=== PATIENT | male | born 1955 | race Caucasian/White ===

== ENCOUNTER 2016-09-10 11:51 | Outpatient (CLI) | payer OTHER, BC ==
[~2016-09-10 11:51] MED LIST: ASPI81TA2 PO; BACL10TA PO; LISI20TA PO; NEU300 PO; NOR10 PO; SIMV40TA2 PO; SITA1TAB10 PO; TYLENOL PO
== END 2016-09-10 21:07 | disposition home or self-care (01) ==
LOC: SRD 11:51
PROVIDERS: ATTEND Internal Medicine
DX: M19.031 Primary osteoarthritis, right wrist (principal)

== ENCOUNTER 2017-09-26 14:53 | Outpatient (CLI) | payer OTHER, BC | END 2017-09-26 21:16 | disposition home or self-care (01) | LOC: SRD 14:53 | PROVIDERS: ATTEND Internal Medicine | DX: R91.1 Solitary pulmonary nodule (principal) | CPT/HCPCS: 71048 ==

== ENCOUNTER 2018-06-05 10:44 | Emergency (ER) | payer OTHER, BC ==
[~2018-06-05] VITALS: Ht 180.3 cm; Wt 158.8 kg
[~2018-06-05 10:44] MED LIST changes: +ASPI-1155 PO; -ASPI81TA2 PO
[2018-06-05 10:53] VITALS: BP_SYST 142
[2018-06-05] MEDS ORDERED: MORPHINE 4 MG/ML INJ. SYRINGE IVP ONE (12:00)
[2018-06-05 12:56] LABS: HEMATOCRIT 36.6 % (36-54); HEMOGLOBIN 12.2 g/dL (14.0-18.0); LYMPHOCYTES % (AUTO) 30.7 % (20.5-51.5); MEAN CORPUSCULAR HEMOGLOBIN 30 pg (27-31); MEAN CORPUSCULAR HGB CONC 33 % (32-36); MEAN CORPUSCULAR VOLUME 89 fL (79.0-98.0); MONOCYTES % (AUTO) 7.9 % (1.7-9.3); NEUTROPHILS % (AUTO) 57.3 % (40.0-70.0); PLATELET COUNT (AUTO) 175 K/uL (130-430); RED BLOOD CELL COUNT(AUTO) 4.13 MIL/uL (4.2-6.2); RED CELL DISTRIBUTION WIDTH 15.1 % (9.0-15.0); WHITE BLOOD COUNT (AUTO) 5.9 K/uL (4.8-10.8)
[2018-06-05 12:57] LABS: BASOPHILS # (AUTO) 0.1 K/uL (0.0-0.2); BASOPHILS % (AUTO) 1.2 % (0.0-2.0); EOSINOPHILS # (AUTO) 0.2 K/uL (0.0-0.4); EOSINOPHILS % (AUTO) 2.9 % (0.0-4.0); LYMPHOCYTES # (AUTO) 1.8 K/uL (1.0-5.5); MONOCYTES # (AUTO) 0.5 K/uL (0.0-1.0); NEUTROPHILS # (AUTO) 3.4 K/uL (1.8-7.7)
[2018-06-05 13:09] LABS: PROTHROMBIN TIME 10.1 SECS (9.5-12.5)
[2018-06-05 15:09] VITALS: BP_SYST 142
== END 2018-06-05 15:09 | disposition home or self-care (01) ==
LOC: SED 10:44
DX: S22.32XA Fracture of one rib, left side, initial encounter for closed fracture (principal); J44.9 Chronic obstructive pulmonary disease, unspecified; E11.9 Type 2 diabetes mellitus without complications; I10 Essential (primary) hypertension; Z98.84 Bariatric surgery status; Z79.82 Long term (current) use of aspirin; Z79.899 Other long term (current) drug therapy; W01.198A Fall on same level from slipping, tripping and stumbling with subsequent striking against other object, initial encounter; Y93.89 Activity, other specified; Y92.89 Other specified places as the place of occurrence of the external cause; Y99.8 Other external cause status
CPT/HCPCS: 36415; 71045; 71250; 74176; 85025; 85610; 96372; 99284; J2270

== ENCOUNTER 2018-06-09 11:33 | Emergency (ER) | payer OTHER, BC ==
[~2018-06-09] VITALS: Ht 180.3 cm; Wt 158.8 kg
[2018-06-09 11:33] VITALS: BP_SYST 163
--- NOTE | 2018-06-09 11:33 | NUR ---
BROUGHT IMMEDIATELY BACK TO BED #4 AND TRIAGED.REPORT GIVEN TO LIONEL
--- NOTE | 2018-06-09 11:39 | NUR ---
pt stated that he was attempting to lexx his dog during a dog fight, when he accidently tripped over a brick in his drive way and fell to the cement. Pt denies LOC. Has left rib pain 09/27.
--- NOTE | 2018-06-09 11:39 | NUR ---
Patient to ER bed 04 to gown for evaluation. Side rails up.
--- NOTE | 2018-06-09 11:40 | NUR ---
ER at bedside examining patient.
[2018-06-09] MEDS ORDERED: HYDROcodone/ACETAMIN 5-325 MG TAB (NORCO/ VICODIN) PO ONE (11:45)
--- NOTE | 2018-06-09 11:51 | NUR ---
Radiology Pt taken off unit to radiology.
[2018-06-09 13:24] VITALS: BP_SYST 114
--- NOTE | 2018-06-09 13:29 | NUR ---
Patient given written and verbal discharge instructions and verbalizes understanding. ER MD discussed with patient the results and treatment provided. Patient in stable condition. ID arm band removed. No RX given. Patient educated on pain management and to follow up with PMD. Pain Scale 3/10 tolerable for patient. Opportunity for questions provided and answered. Medication side effect fact sheet provided.
== END 2018-06-09 13:24 | disposition home or self-care (01) ==
LOC: SED 11:33
DX: S29.011A Strain of muscle and tendon of front wall of thorax, initial encounter (principal); E11.9 Type 2 diabetes mellitus without complications; J44.9 Chronic obstructive pulmonary disease, unspecified; I10 Essential (primary) hypertension; Z79.82 Long term (current) use of aspirin; Z79.899 Other long term (current) drug therapy; W01.0XXA Fall on same level from slipping, tripping and stumbling without subsequent striking against object, initial encounter; Y93.89 Activity, other specified; Y92.89 Other specified places as the place of occurrence of the external cause; Y99.8 Other external cause status
CPT/HCPCS: 71100; 99283

== ENCOUNTER 2018-07-19 16:24 | Outpatient (CLI) | payer OTHER, BC | END 2018-07-19 21:12 | disposition home or self-care (01) | LOC: SRD 16:24 | PROVIDERS: ATTEND Internal Medicine | DX: M19.042 Primary osteoarthritis, left hand (principal); M19.041 Primary osteoarthritis, right hand; M65.30 Trigger finger, unspecified finger ==

== ENCOUNTER 2018-11-28 20:08 | Emergency (ER) | payer OTHER, BC ==
[~2018-11-28] VITALS: Ht 180.3 cm; Wt 158.8 kg
[2018-11-28 20:20] VITALS: BP_SYST 137
--- NOTE | 2018-11-28 20:20 | NUR ---
Pt ambulatory to bed 7 for evaluation
--- NOTE | 2018-11-28 20:35 | NUR ---
Pt presents to ER after hitting the back of his head into a wall, after slipping while sitting on a chair. Pt states that his head is not hurting at this time, but does have neck pain that radiates into this back of his shoulder, 06/28. Pt is AAO. No KO happened. Pt has Hx of DM, HTN, and Kidney disease stage 4. Pt has a gastric bypass and retinal attachment Sx. Will continue to monitor.
--- NOTE | 2018-11-28 20:42 | NUR ---
Dr. Amado at bedside examining Pt.
[2018-11-28] MEDS ORDERED: LORazepam 2 MG/ML VIAL IM ONE (20:45)
[2018-11-28] MEDS ORDERED: KETOROLAC TROMETHAMINE 60 MG/2 ML VIAL IM ONE (20:45)
--- NOTE | 2018-11-28 20:52 | NUR ---
Pt to radiology for X-ray.
--- NOTE | 2018-11-28 21:25 | NUR ---
Patient given written and verbal discharge instructions and verbalizes understanding. ER MD discussed with patient the results and treatment provided. Patient in stable condition. ID arm band removed. Rx of Motrin given. Patient educated on pain management and to follow up with PMD. Pain Scale 0/10.Opportunity for questions provided and answered. Medication side effect fact sheet provided.
[2018-11-28 21:38] VITALS: BP_SYST 135
== END 2018-11-28 21:38 | disposition home or self-care (01) ==
LOC: SED 20:08
DX: S16.1XXA Strain of muscle, fascia and tendon at neck level, initial encounter (principal); I12.9 Hypertensive chronic kidney disease with stage 1 through stage 4 chronic kidney disease, or unspecified chronic kidney disease; E11.22 Type 2 diabetes mellitus with diabetic chronic kidney disease; N18.9 Chronic kidney disease, unspecified; Z79.82 Long term (current) use of aspirin; Z79.899 Other long term (current) drug therapy; W01.198A Fall on same level from slipping, tripping and stumbling with subsequent striking against other object, initial encounter; Y93.89 Activity, other specified; Y92.89 Other specified places as the place of occurrence of the external cause; Y99.8 Other external cause status
CPT/HCPCS: 72040; 82962; 96372; 99283; J1885; J2060

== ENCOUNTER 2018-12-31 10:42 | Emergency (ER) | payer OTHER, BC ==
[~2018-12-31] VITALS: Ht 180.3 cm; Wt 154.2 kg
--- NOTE | 2018-12-31 10:50 | NUR ---
Placed in room 3 . Placed on property assessment monitor, blood pressure machine and pulse oximeter. To gown for exam. Side rails up.
[2018-12-31 10:51] VITALS: BP_SYST 158
--- NOTE | 2018-12-31 10:55 | NUR ---
pt arrives w/ sudden onset of CP and SOB. Pt was seen at an uregent care and was instructed to come to the ER. Pt is AAOx4 not other c/o at the moment
--- NOTE | 2018-12-31 11:00 | NUR ---
ASHLEY Jang at bedside examining patient.
[2018-12-31] MEDS ORDERED: ASPIRIN 81 MG TAB.CHEW PO ONE (11:15)
[2018-12-31 11:42] LABS: BASOPHILS # (AUTO) 0.1 K/uL (0.0-0.2); BASOPHILS % (AUTO) 0.7 % (0.0-2.0); EOSINOPHILS # (AUTO) 0.2 K/uL (0.0-0.4); EOSINOPHILS % (AUTO) 2.7 % (0.0-4.0); HEMATOCRIT 36.8 % (36-54); HEMOGLOBIN 12.2 g/dL (14.0-18.0); LYMPHOCYTES # (AUTO) 1.9 K/uL (1.0-5.5); LYMPHOCYTES % (AUTO) 23.8 % (20.5-51.5); MEAN CORPUSCULAR HEMOGLOBIN 30 pg (27-31); MEAN CORPUSCULAR HGB CONC 33 % (32-36); MEAN CORPUSCULAR VOLUME 90 fL (79.0-98.0); MONOCYTES # (AUTO) 0.6 K/uL (0.0-1.0); MONOCYTES % (AUTO) 8.2 % (1.7-9.3); NEUTROPHILS % (AUTO) 64.6 % (40.0-70.0); PLATELET COUNT (AUTO) 178 K/uL (130-430); RED BLOOD CELL COUNT(AUTO) 4.09 MIL/uL (4.2-6.2); RED CELL DISTRIBUTION WIDTH 15.4 % (9.0-15.0); WHITE BLOOD COUNT (AUTO) 7.8 K/uL (4.8-10.8)
[2018-12-31 11:44] LABS: ANION GAP 7 (5-15); CALCIUM 8.9 mg/dL (8.4-11.0); CHLORIDE 105 mmol/L (98-107); CREATININE 3.31 mg/dL (0.55-1.30); GLUCOSE 225 mg/dL (70-99); SODIUM SERUM 137 mmol/L (136-145); UREA NITROGEN, BLOOD 65 mg/dL (8-21)
[2018-12-31 11:45] LABS: GFR AFRICAN AMERICAN 25 mL/min (>90); POTASSIUM 5.1 mmol/L (3.5-5.1)
[2018-12-31 11:45] LABS: BILIRUBIN,URINE NEGATIVE (NEGATIVE); BLOOD, URINE NEGATIVE (NEGATIVE); CLARITY/URINE SL HAZY (CLEAR); COLOR,URINE YELLOW (YELLOW); GLUCOSE,URINE 1+ (NEGATIVE); KETONES,URINE NEGATIVE (NEGATIVE); LEUKOCYTE ESTERASE ,URINE NEGATIVE (NEGATIVE); NITRITE, URINE NEGATIVE (NEGATIVE); PH,URINE 6.5 (5.0-8.0); PROTEIN URINE TRACE (NEGATIVE); UROBILINOGEN,URINE 0.2 (0.2-1.0)
--- NOTE | 2018-12-31 11:47 | NUR ---
Patient given PO Aspirin as ordered by . Verified with MD and pharmacist Nicholas mcdonough to give, even with CKD Stage IV.
[2018-12-31 11:52] LABS: ALANINE AMINOTRANSFERASE 36 U/L (12-78); ALBUMIN 3.4 g/dL (3.4-4.8); ASPARTATE AMINOTRANSFERASE 26 U/L (10-37); TOTAL BILIRUBIN 0.2 mg/dL (0.0-1.0)
[2018-12-31 12:11] LABS: BACTERIA,URINE RARE /HPF (None Seen); MUCUS,URINE 1+ /LPF (None Seen); RBC,URINE NONE SEEN /HPF (0-3); WBC,URINE 0-3 /HPF (0-3)
--- NOTE | 2018-12-31 12:50 | NUR ---
pt reports feeling better and is having lunch at the moment
[2018-12-31 13:33] VITALS: BP_SYST 141
--- NOTE | 2018-12-31 13:34 | NUR ---
Patient given written and verbal discharge instructions and verbalizes understanding. ER MD discussed with patient the results and treatment provided. Patient in stable condition. ID arm band removed. Rx of TYLENOL #3 given. Patient educated on pain management and to follow up with PMD. Pain Scale 0/10. Opportunity for questions provided and answered. Medication side effect fact sheet provided.
== END 2018-12-31 13:34 | disposition home or self-care (01) ==
LOC: SED 10:42
DX: R07.89 Other chest pain (principal); I12.9 Hypertensive chronic kidney disease with stage 1 through stage 4 chronic kidney disease, or unspecified chronic kidney disease; E11.22 Type 2 diabetes mellitus with diabetic chronic kidney disease; N18.9 Chronic kidney disease, unspecified; E66.01 Morbid (severe) obesity due to excess calories; Z68.42 Body mass index [BMI] 45.0-49.9, adult; Z79.82 Long term (current) use of aspirin; Z79.899 Other long term (current) drug therapy
CPT/HCPCS: 36415; 71045; 80053; 81000-TC; 84484; 85025; 93005; 99284

== ENCOUNTER 2019-02-27 13:28 | Outpatient (CLI) | payer OTHER, BC ==
[2019-02-27 14:59] LABS: BASOPHILS # (AUTO) 0.1 K/uL (0.0-0.2); BASOPHILS % (AUTO) 0.8 % (0.0-2.0); EOSINOPHILS # (AUTO) 0.2 K/uL (0.0-0.4); LYMPHOCYTES # (AUTO) 2.1 K/uL (1.0-5.5); MEAN CORPUSCULAR HEMOGLOBIN 30 pg (27-31); MEAN CORPUSCULAR HGB CONC 34 % (32-36); MEAN CORPUSCULAR VOLUME 89 fL (79.0-98.0); MONOCYTES # (AUTO) 0.6 K/uL (0.0-1.0); MONOCYTES % (AUTO) 7.3 % (1.7-9.3); NEUTROPHILS # (AUTO) 4.9 K/uL (1.8-7.7); NEUTROPHILS % (AUTO) 61.9 % (40.0-70.0); PLATELET COUNT (AUTO) 161 K/uL (130-430); RED BLOOD CELL COUNT(AUTO) 4.04 MIL/uL (4.2-6.2); RED CELL DISTRIBUTION WIDTH 14.5 % (9.0-15.0); WHITE BLOOD COUNT (AUTO) 7.9 K/uL (4.8-10.8)
[2019-02-27 15:06] LABS: CALCIUM 8.7 mg/dL (8.4-11.0); CREATININE 3.67 mg/dL (0.55-1.30); POTASSIUM 4.6 mmol/L (3.5-5.1)
== END 2019-02-27 21:06 | disposition home or self-care (01) ==
LOC: SRD 13:28
PROVIDERS: ATTEND Surgery Vascular Surgery
DX: N18.6 End stage renal disease (principal)
CPT/HCPCS: 36415; 71046-TC; 80048; 85025; 85610-TC; 85730-TC

== ENCOUNTER 2019-07-09 10:45 | Emergency (ER) | payer OTHER, BC ==
[~2019-07-09] VITALS: Ht 182.9 cm; Wt 163.3 kg
[2019-07-09 10:50] VITALS: BP_SYST 139
[2019-07-09 11:35] VITALS: BP_SYST 139
[2019-07-10] MEDS ORDERED: METO5TAB8 PO (21:53)
[2019-07-10] MEDS ORDERED: RAMI10CA32 PO (21:53)
[2019-07-10] MEDS ORDERED: INSU100V SQ (21:53)
[2019-07-10] MEDS ORDERED: INSU300I SQ (21:53)
[2019-07-10] MEDS ORDERED: COLC0.6T67 PO (21:53)
[2019-07-10] MEDS ORDERED: SOM350 PO (21:53)
[2019-07-10] MEDS ORDERED: ALBMDI INH (21:53)
[2019-07-10] MEDS ORDERED: LORA10TA7 PO (21:53)
[2019-07-10] MEDS ORDERED: ACET-73 PO (21:53)
[2019-07-10] MEDS ORDERED: FURO80TA86 PO (21:53)
[2019-07-10] MEDS ORDERED: RAMI2.5C34 PO (21:53)
[2019-07-10] MEDS ORDERED: AMLO2.5T2 PO (21:53)
[2019-07-10] MEDS ORDERED: FLUT1DIS IH (21:53)
== END 2019-07-09 11:35 | disposition home or self-care (01) ==
LOC: SED 10:45
DX: J40 Bronchitis, not specified as acute or chronic (principal); I10 Essential (primary) hypertension; E11.9 Type 2 diabetes mellitus without complications; Z79.899 Other long term (current) drug therapy
CPT/HCPCS: 71046-TC; 99283

== ENCOUNTER 2019-07-10 19:21 | Inpatient (IN) | payer OTHER, BC, SELFPAY ==
[~2019-07-10] VITALS: Ht 182.9 cm; Wt 159.7 kg
[2019-07-10 19:21] VITALS: BP_SYST 139
[2019-07-10] MEDS ORDERED: NACL 0.9% 1,000 ML IV ONE (19:40)
[2019-07-10] MEDS ORDERED: IPRATROPIUM BROM 0.5 MG/2.5 ML VIAL.NEB (ATROVENT) INH ONE (19:45)
[2019-07-10] MEDS ORDERED: methylPREDNISolone SOD SUCC/PF 62.5 MG/ML VIAL IVP ONE (19:45)
[2019-07-10] MEDS ORDERED: ALBUTEROL SULFATE 0.083% 2.5 MG/3 ML VIAL.NEB INH ONE (19:45)
[2019-07-10 20:39] LABS: BASOPHILS % (AUTO) 0.5 % (0.0-2.0); EOSINOPHILS # (AUTO) 0.2 K/uL (0.0-0.4); EOSINOPHILS % (AUTO) 1.6 % (0.0-4.0); HEMATOCRIT 32.5 % (36-54); HEMOGLOBIN 10.8 g/dL (14.0-18.0); LYMPHOCYTES # (AUTO) 1.3 K/uL (1.0-5.5); LYMPHOCYTES % (AUTO) 13.1 % (20.5-51.5); MEAN CORPUSCULAR HEMOGLOBIN 30 pg (27-31); MEAN CORPUSCULAR HGB CONC 33 % (32-36); MEAN CORPUSCULAR VOLUME 92 fL (79.0-98.0); MONOCYTES # (AUTO) 0.9 K/uL (0.0-1.0); MONOCYTES % (AUTO) 9.2 % (1.7-9.3); NEUTROPHILS # (AUTO) 7.4 K/uL (1.8-7.7); NEUTROPHILS % (AUTO) 75.6 % (40.0-70.0); PLATELET COUNT (AUTO) 144 K/uL (130-430); RED BLOOD CELL COUNT(AUTO) 3.55 MIL/uL (4.2-6.2); RED CELL DISTRIBUTION WIDTH 16.1 % (9.0-15.0); WHITE BLOOD COUNT (AUTO) 9.8 K/uL (4.8-10.8)
[2019-07-10 21:04] LABS: CALCIUM 8.5 mg/dL (8.4-11.0); CREATININE 4.27 mg/dL (0.55-1.30); POTASSIUM 4.3 mmol/L (3.5-5.1)
[2019-07-10 21:10] LABS: ALBUMIN 3.5 g/dL (3.4-4.8); TOTAL BILIRUBIN 0.4 mg/dL (0.0-1.0)
[2019-07-10 21:12] LABS: BILIRUBIN,URINE NEGATIVE (NEGATIVE); GLUCOSE,URINE 1+ (NEGATIVE); KETONES,URINE NEGATIVE (NEGATIVE); LEUKOCYTE ESTERASE ,URINE 1+ (NEGATIVE); NITRITE, URINE NEGATIVE (NEGATIVE); PROTEIN URINE NEGATIVE (NEGATIVE); UROBILINOGEN,URINE 0.2 (0.2-1.0)
[2019-07-10 21:23] LABS: BLOOD, URINE TRACE (NEGATIVE); CLARITY/URINE SLIGHTLY HAZY (CLEAR); COLOR,URINE STRAW (YELLOW)
[2019-07-10 21:49] LABS: PROTHROMBIN TIME 9.8 SECS (9.5-12.5)
[2019-07-10] MEDS ORDERED: INSU100V SQ (21:53)
[2019-07-10] MEDS ORDERED: FURO80TA86 PO (21:53)
[2019-07-10] MEDS ORDERED: METO5TAB8 PO (21:53)
[2019-07-10] MEDS ORDERED: ALBMDI INH (21:53)
[2019-07-10] MEDS ORDERED: SOM350 PO (21:53)
[2019-07-10] MEDS ORDERED: RAMI10CA32 PO (21:53)
[2019-07-10] MEDS ORDERED: AMLO2.5T2 PO (21:53)
[2019-07-10] MEDS ORDERED: RAMI2.5C34 PO (21:53)
[2019-07-10] MEDS ORDERED: ACET-73 PO (21:53)
[2019-07-10] MEDS ORDERED: INSU300I SQ (21:53)
[2019-07-10] MEDS ORDERED: COLC0.6T67 PO (21:53)
[2019-07-10] MEDS ORDERED: FLUT1DIS IH (21:53)
[2019-07-10] MEDS ORDERED: LORA10TA7 PO (21:53)
[2019-07-10 22:02] LABS: BACTERIA,URINE FEW /HPF (None Seen); RBC,URINE 0-3 /HPF (0-3); WBC,URINE 0-3 /HPF (0-3)
[2019-07-11] MEDS ORDERED: ALBUTEROL SULFATE 0.083% 2.5 MG/3 ML VIAL.NEB INH ONE (00:30)
[2019-07-11] MEDS ORDERED: IPRATROPIUM BROM 0.5 MG/2.5 ML VIAL.NEB (ATROVENT) INH ONE (00:30)
[2019-07-11] MEDS ORDERED: MORPHINE 4 MG/ML INJ. SYRINGE IVP ONE (00:30)
[2019-07-11 02:40] VITALS: BP_SYST 123
[2019-07-11] MEDS ORDERED: ACETAMINOPHEN 325 MG TABLET PO PRN (04:45)
[2019-07-11] MEDS ORDERED: CARISOPRODOL 350 MG TABLET PO PRN (04:45)
[2019-07-11] MEDS: cefTRIAXone 1 GM IVPB PREMIX 50 ML IV SCH (05:27)
[2019-07-11] MEDS ORDERED: AZITHROMYCIN 500 MG/VIAL (ZITHROMAX) IV ONE (05:30)
[2019-07-11] MEDS ORDERED: cefTRIAXone 1 GM IVPB PREMIX 50 ML IV ONE (05:30)
[2019-07-11] MEDS ORDERED: DEXTROSE 50% JECT 50 ML DISP.SYRIN IVP PRN (06:00)
[2019-07-11] MEDS ORDERED: GLUCOSE 15 GM GEL (in 37.5 GM TUBE) PO PRN (06:00)
[2019-07-11] MEDS: INSULIN REGULAR, HUMAN 100 UNITS/ML, 10 ML VIAL (humuLIN R) SUBCUT PRN ×4 (06:17→21:48)
[2019-07-11] MEDS: AZITHROMYCIN 500 MG in NS 250 ML IV SCH (06:18)
[2019-07-11] MEDS: HYDROcodone/ACETAMIN 5-325 MG TAB (NORCO/ VICODIN) PO PRN (06:34)
[2019-07-11 07:35] LABS: BASOPHILS % (AUTO) 0.1 % (0.0-2.0); HEMATOCRIT 35.2 % (36-54); HEMOGLOBIN 11.3 g/dL (14.0-18.0); LYMPHOCYTES # (AUTO) 0.5 K/uL (1.0-5.5); LYMPHOCYTES % (AUTO) 4.2 % (20.5-51.5); MEAN CORPUSCULAR HEMOGLOBIN 30 pg (27-31); MEAN CORPUSCULAR HGB CONC 32 % (32-36); MEAN CORPUSCULAR VOLUME 93 fL (79.0-98.0); MONOCYTES # (AUTO) 0.3 K/uL (0.0-1.0); MONOCYTES % (AUTO) 2.3 % (1.7-9.3); NEUTROPHILS # (AUTO) 10.7 K/uL (1.8-7.7); NEUTROPHILS % (AUTO) 93.4 % (40.0-70.0); PLATELET COUNT (AUTO) 152 K/uL (130-430); RED BLOOD CELL COUNT(AUTO) 3.79 MIL/uL (4.2-6.2); RED CELL DISTRIBUTION WIDTH 15.6 % (9.0-15.0); WHITE BLOOD COUNT (AUTO) 11.5 K/uL (4.8-10.8)
[2019-07-11 08:30] VITALS: BP_SYST 111
[2019-07-11] MEDS: LORATADINE 10 MG TABLET PO SCH (08:30)
[2019-07-11] MEDS: FUROSEMIDE 80 MG TABLET PO SCH (08:31)
[2019-07-11] MEDS: COLCHICINE 0.6 MG TABLET PO SCH (08:31)
[2019-07-11] MEDS: amLODIPine BESYLATE 5 MG TABLET PO SCH (08:32)
[2019-07-11] MEDS: LISINOPRIL 10 MG TABLET (PRINIVIL) PO SCH (08:33)
[2019-07-11 08:42] LABS: ALANINE AMINOTRANSFERASE 27 U/L (12-78); ALBUMIN 3.7 g/dL (3.4-4.8); ANION GAP 12 (5-15); ASPARTATE AMINOTRANSFERASE 13 U/L (10-37); CALCIUM 8.4 mg/dL (8.4-11.0); CHLORIDE 93 mmol/L (98-107); CREATININE 4.49 mg/dL (0.55-1.30); SODIUM SERUM 127 mmol/L (136-145); TOTAL BILIRUBIN 0.5 mg/dL (0.0-1.0); UREA NITROGEN, BLOOD 87 mg/dL (8-21)
[2019-07-11] MEDS ORDERED: METOLAZONE 5 MG TABLET PO SCH (09:00)
[2019-07-11] MEDS ORDERED: INSULIN REGULAR, HUMAN 100 UNITS/ML, 10 ML VIAL SUBCUT ONE ×3 (10:15→22:45)
[2019-07-11] MEDS ORDERED: SODIUM POLYSTYRENE SULFONATE 15 GM/60 ML UDBTL PO ONE (10:15)
[2019-07-11 11:21] LABS: GLUCOSE 516 mg/dL (70-99); POTASSIUM 6.8 mmol/L (3.5-5.1)
[2019-07-11] MEDS ORDERED: *LOVENOX0.75MG/KG Q12H/PHARMACY XX ONE (12:00)
[2019-07-11 12:21] LABS: C-REACTIVE PROTEIN QUANT 6.2 mg/dL (0-0.5)
[2019-07-11 12:30] VITALS: BP_SYST 139
[2019-07-11] MEDS: ENOXAPARIN SODIUM 120 MG/0.8 ML SYRINGE SUBCUT ONE (13:45)
[2019-07-11] MEDS ORDERED: LIDOCAINE/PRILOCAINE 5 GM CREAM (EMLA) TP SCH (15:15)
[2019-07-11 16:50] VITALS: BP_SYST 124
[2019-07-11 20:40] VITALS: BP_SYST 124
[2019-07-11] MEDS ORDERED: ENOXAPARIN SODIUM 120 MG/0.8 ML SYRINGE SUBCUT SCH (21:00)
[2019-07-11 21:52] VITALS: BP_SYST 115
[2019-07-12 01:48] VITALS: BP_SYST 112
[2019-07-12] MEDS: cefTRIAXone 1 GM IVPB PREMIX 50 ML IV SCH (05:45)
[2019-07-12] MEDS: INSULIN REGULAR, HUMAN 100 UNITS/ML, 10 ML VIAL (humuLIN R) SUBCUT PRN ×4 (06:16→21:26)
[2019-07-12] MEDS: AZITHROMYCIN 500 MG in NS 250 ML IV SCH (06:22)
[2019-07-12 06:50] LABS: BASOPHILS % (AUTO) 0.1 % (0.0-2.0); EOSINOPHILS % (AUTO) 0.3 % (0.0-4.0); HEMATOCRIT 32.2 % (36-54); HEMOGLOBIN 10.6 g/dL (14.0-18.0); LYMPHOCYTES # (AUTO) 1.3 K/uL (1.0-5.5); LYMPHOCYTES % (AUTO) 9.9 % (20.5-51.5); MEAN CORPUSCULAR HEMOGLOBIN 30 pg (27-31); MEAN CORPUSCULAR HGB CONC 33 % (32-36); MEAN CORPUSCULAR VOLUME 92 fL (79.0-98.0); MONOCYTES # (AUTO) 1.1 K/uL (0.0-1.0); MONOCYTES % (AUTO) 8.7 % (1.7-9.3); NEUTROPHILS # (AUTO) 10.4 K/uL (1.8-7.7); PLATELET COUNT (AUTO) 155 K/uL (130-430); RED BLOOD CELL COUNT(AUTO) 3.52 MIL/uL (4.2-6.2); RED CELL DISTRIBUTION WIDTH 15.8 % (9.0-15.0); WHITE BLOOD COUNT (AUTO) 12.8 K/uL (4.8-10.8)
[2019-07-12 06:55] LABS: ALBUMIN 3.3 g/dL (3.4-4.8); CALCIUM 8.7 mg/dL (8.4-11.0); CREATININE 4.17 mg/dL (0.55-1.30); POTASSIUM 4.3 mmol/L (3.5-5.1); TOTAL BILIRUBIN 0.3 mg/dL (0.0-1.0)
[2019-07-12 08:00] VITALS: BP_SYST 136
[2019-07-12] MEDS: COLCHICINE 0.6 MG TABLET PO SCH (08:59)
[2019-07-12] MEDS: LORATADINE 10 MG TABLET PO SCH (08:59)
[2019-07-12] MEDS ORDERED: ENOXAPARIN SODIUM 120 MG/0.8 ML SYRINGE SUBCUT SCH (09:00)
[2019-07-12] MEDS: amLODIPine BESYLATE 5 MG TABLET PO SCH (09:00)
[2019-07-12] MEDS: LISINOPRIL 10 MG TABLET (PRINIVIL) PO SCH (09:00)
[2019-07-12] MEDS: FUROSEMIDE 80 MG TABLET PO SCH (09:00)
[2019-07-12] MEDS ORDERED: *HEPARIN PER PHARMACY XX ONE (09:45)
[2019-07-12 11:38] LABS: TOTAL IRON BIND. CAPACITY 170 ug/dL (250-450)
[2019-07-12] MEDS ORDERED: HEPARIN SODIUM,PORCINE 3000 UNITS/0.6 ML BOLUS IVP PRN (12:00)
[2019-07-12] MEDS ORDERED: HEPARIN SODIUM,PORCINE 2000 UNITS/0.4 ML BOLUS IVP PRN (12:00)
[2019-07-12] MEDS ORDERED: HEPARIN SODIUM,PORCINE 5000 UNITS/ML VIAL IVP ONE ×2 (12:00→13:00)
[2019-07-12 13:16] VITALS: BP_SYST 134
[2019-07-12 16:43] VITALS: BP_SYST 130
[2019-07-12 20:00] VITALS: BP_SYST 113
[2019-07-12] MEDS: HEPARIN 25,000 UNITS in 250 ML PREMIX IV PRN (23:58)
[2019-07-13 00:46] VITALS: BP_SYST 144
[2019-07-13] MEDS: cefTRIAXone 1 GM IVPB PREMIX 50 ML IV SCH (04:39)
[2019-07-13 05:21] LABS: HEPATITIS A AB, IgM Negative (Negative); HEPATITIS B CORE AB, IgM Negative (Negative); HEPATITIS B SURFACE AG Negative (Negative)
[2019-07-13] MEDS: AZITHROMYCIN 500 MG in NS 250 ML IV SCH (05:43)
[2019-07-13] MEDS: INSULIN REGULAR, HUMAN 100 UNITS/ML, 10 ML VIAL (humuLIN R) SUBCUT PRN ×4 (06:21→21:38)
[2019-07-13] MEDS: HYDROcodone/ACETAMIN 5-325 MG TAB (NORCO/ VICODIN) PO PRN ×2 (06:30→21:33)
[2019-07-13 06:53] LABS: BASOPHILS # (AUTO) 0.1 K/uL (0.0-0.2); BASOPHILS % (AUTO) 0.8 % (0.0-2.0); EOSINOPHILS # (AUTO) 0.5 K/uL (0.0-0.4); EOSINOPHILS % (AUTO) 5.2 % (0.0-4.0); HEMATOCRIT 32.4 % (36-54); HEMOGLOBIN 10.7 g/dL (14.0-18.0); LYMPHOCYTES # (AUTO) 2.6 K/uL (1.0-5.5); LYMPHOCYTES % (AUTO) 26.9 % (20.5-51.5); MEAN CORPUSCULAR HEMOGLOBIN 30 pg (27-31); MEAN CORPUSCULAR HGB CONC 33 % (32-36); MEAN CORPUSCULAR VOLUME 92 fL (79.0-98.0); MONOCYTES # (AUTO) 0.7 K/uL (0.0-1.0); MONOCYTES % (AUTO) 7.6 % (1.7-9.3); NEUTROPHILS # (AUTO) 5.8 K/uL (1.8-7.7); NEUTROPHILS % (AUTO) 59.5 % (40.0-70.0); PLATELET COUNT (AUTO) 159 K/uL (130-430); RED BLOOD CELL COUNT(AUTO) 3.53 MIL/uL (4.2-6.2); RED CELL DISTRIBUTION WIDTH 15.7 % (9.0-15.0); WHITE BLOOD COUNT (AUTO) 9.7 K/uL (4.8-10.8)
[2019-07-13 06:56] LABS: CREATININE 3.69 mg/dL (0.55-1.30); POTASSIUM 3.7 mmol/L (3.5-5.1)
[2019-07-13] MEDS: HEPARIN 25,000 UNITS in 250 ML PREMIX IV PRN (07:15)
[2019-07-13] MEDS: LISINOPRIL 10 MG TABLET (PRINIVIL) PO SCH (08:46)
[2019-07-13] MEDS: LORATADINE 10 MG TABLET PO SCH (08:46)
[2019-07-13] MEDS: COLCHICINE 0.6 MG TABLET PO SCH (08:47)
[2019-07-13] MEDS: amLODIPine BESYLATE 5 MG TABLET PO SCH (08:47)
[2019-07-13] MEDS: FUROSEMIDE 80 MG TABLET PO SCH (08:48)
[2019-07-13 12:18] VITALS: BP_SYST 118
[2019-07-13 16:12] VITALS: BP_SYST 151
[2019-07-13 20:00] VITALS: BP_SYST 144
[2019-07-14] MEDS ORDERED: INSULIN REGULAR, HUMAN 100 UNITS/ML, 10 ML VIAL SUBCUT ONE
[2019-07-14 00:10] VITALS: BP_SYST 141
[2019-07-14] MEDS: AMPICILLIN SODIUM 1 GM in NS 50 ML IV SCH ×2 (00:55→09:00)
[2019-07-14] MEDS ORDERED: AMPICILLIN SODIUM 1 GM VIAL ONE (00:59)
[2019-07-14] MEDS: HEPARIN 25,000 UNITS in 250 ML PREMIX IV PRN (01:11)
[2019-07-14] MEDS: INSULIN REGULAR, HUMAN 100 UNITS/ML, 10 ML VIAL (humuLIN R) SUBCUT PRN ×3 (06:38→16:57)
[2019-07-14 06:46] LABS: BASOPHILS % (AUTO) 0.4 % (0.0-2.0); EOSINOPHILS # (AUTO) 0.5 K/uL (0.0-0.4); HEMATOCRIT 30.8 % (36-54); HEMOGLOBIN 10.3 g/dL (14.0-18.0); LYMPHOCYTES # (AUTO) 2.8 K/uL (1.0-5.5); LYMPHOCYTES % (AUTO) 34.6 % (20.5-51.5); MEAN CORPUSCULAR HEMOGLOBIN 31 pg (27-31); MEAN CORPUSCULAR HGB CONC 34 % (32-36); MEAN CORPUSCULAR VOLUME 91 fL (79.0-98.0); MONOCYTES # (AUTO) 0.7 K/uL (0.0-1.0); MONOCYTES % (AUTO) 8.2 % (1.7-9.3); NEUTROPHILS % (AUTO) 50.8 % (40.0-70.0); PLATELET COUNT (AUTO) 154 K/uL (130-430); RED BLOOD CELL COUNT(AUTO) 3.37 MIL/uL (4.2-6.2); RED CELL DISTRIBUTION WIDTH 15.9 % (9.0-15.0)
[2019-07-14 07:00] LABS: ALBUMIN 3.1 g/dL (3.4-4.8); CALCIUM 8.3 mg/dL (8.4-11.0); CREATININE 3.46 mg/dL (0.55-1.30); POTASSIUM 3.6 mmol/L (3.5-5.1); TOTAL BILIRUBIN 0.5 mg/dL (0.0-1.0)
[2019-07-14 08:45] VITALS: BP_SYST 131
[2019-07-14] MEDS: LORATADINE 10 MG TABLET PO SCH (08:57)
[2019-07-14] MEDS: COLCHICINE 0.6 MG TABLET PO SCH (08:58)
[2019-07-14] MEDS ORDERED: EPOETIN ALFA 4,000 UNITS/ML VIAL SUBCUT SCH (09:00)
[2019-07-14] MEDS: LISINOPRIL 10 MG TABLET (PRINIVIL) PO SCH (09:00)
[2019-07-14] MEDS: amLODIPine BESYLATE 5 MG TABLET PO SCH (09:00)
[2019-07-14] MEDS: FUROSEMIDE 80 MG TABLET PO SCH (09:00)
[2019-07-14] MEDS ORDERED: CEPH-568 PO (11:41)
[2019-07-14 12:39] VITALS: BP_SYST 154
[2019-07-14 17:11] VITALS: BP_SYST 144
[2019-07-14 17:19] VITALS: BP_SYST 144
== END 2019-07-14 17:45 | disposition home or self-care (01) | DRG 871 ==
LOC: SED 19:21 → STU 07-11 00:22 → EEVIPCON 07-11 00:22 → STU 07-11 00:38
PROVIDERS: ADMIT Internal Medicine Hospice and Palliative Medicine; ATTEND Internal Medicine Hospice and Palliative Medicine
PROC: 5A1D70Z Performance of Urinary Filtration, Intermittent, Less than 6 Hours Per Day (ICD-10-PCS; principal; 2019-07-11)
PROC: 5A1D70Z Performance of Urinary Filtration, Intermittent, Less than 6 Hours Per Day (ICD-10-PCS; 2019-07-12)
PROC: 5A1D70Z Performance of Urinary Filtration, Intermittent, Less than 6 Hours Per Day (ICD-10-PCS; 2019-07-14)
DX: A41.9 Sepsis, unspecified organism (principal); J12.9 Viral pneumonia, unspecified; N18.6 End stage renal disease; J96.21 Acute and chronic respiratory failure with hypoxia; I13.11 Hypertensive heart and chronic kidney disease without heart failure, with stage 5 chronic kidney disease, or end stage renal disease; I43 Cardiomyopathy in diseases classified elsewhere; Z68.42 Body mass index [BMI] 45.0-49.9, adult; E87.1 Hypo-osmolality and hyponatremia; N39.0 Urinary tract infection, site not specified; E66.2 Morbid (severe) obesity with alveolar hypoventilation; J45.909 Unspecified asthma, uncomplicated; N18.9 Chronic kidney disease, unspecified; E11.22 Type 2 diabetes mellitus with diabetic chronic kidney disease; M10.9 Gout, unspecified; B95.2 Enterococcus as the cause of diseases classified elsewhere; E87.5 Hyperkalemia; Z53.29 Procedure and treatment not carried out because of patient's decision for other reasons; M50.90 Cervical disc disorder, unspecified, unspecified cervical region; D72.810 Lymphocytopenia; E11.65 Type 2 diabetes mellitus with hyperglycemia; E78.5 Hyperlipidemia, unspecified; Z83.3 Family history of diabetes mellitus; Z87.891 Personal history of nicotine dependence; Z98.84 Bariatric surgery status; Z99.2 Dependence on renal dialysis; Z79.899 Other long term (current) drug therapy; Z03.818 Encounter for observation for suspected exposure to other biological agents ruled out
CPT/HCPCS: 36415; 36600; 71045; 78580-TC; 80048; 80053; 80074; 81000-TC; 82150-TC; 82550-TC; 82728; 82803-TC; 82962; 83540-TC; 83550-TC; 83605; 83615-TC; 83690-TC; 84100-TC; 84484; 85025; 85379; 85610-TC; 85651-TC; 85730-TC; 86140; 87040-TC; 87086; 87186-TC; 90935; 90937; 93005; 93970; 94010; 94640; 96361; 96374; 99285; A9540; G0378; J0290; J0456; J0696; J0885; J1644; J1650; J1815; J2270; J2930; J7030; J7050; J7060; J7613; U0002

== ENCOUNTER 2020-02-08 11:37 | Emergency (ER) | payer OTHER, BC, SELFPAY ==
[~2020-02-08] VITALS: Ht 180.3 cm; Wt 150.6 kg
[~2020-02-08 11:37] MED LIST changes: +ACET-73 PO; +ALBMDI INH; +AMLO2.5T2 PO; -ASPI-1155 PO; -BACL10TA PO; +CEPH-568 PO; +COLC0.6T67 PO; +FLUT1DIS IH; +FURO80TA86 PO; +INSU100V SQ; +INSU300I SQ; -LISI20TA PO; +LORA10TA7 PO; +METO5TAB8 PO; -NEU300 PO; -NOR10 PO; +RAMI10CA32 PO; +RAMI2.5C34 PO; -SIMV40TA2 PO; -SITA1TAB10 PO; +SOM350 PO; -TYLENOL PO
[2020-02-08 11:45] VITALS: BP_SYST 138
[2020-02-08] MEDS ORDERED: KETOROLAC TROMETHAMINE 30 MG VIAL IVP ONE (14:00)
[2020-02-08 14:51] LABS: EOSINOPHILS % (AUTO) 7.1 % (0.0-4.0); HEMOGLOBIN 12.1 g/dL (14.0-18.0); LYMPHOCYTES # (AUTO) 0.6 K/uL (1.0-5.5); LYMPHOCYTES % (AUTO) 16.7 % (20.5-51.5); MEAN CORPUSCULAR HEMOGLOBIN 32 pg (27-31); MEAN CORPUSCULAR HGB CONC 35 % (32-36); MEAN CORPUSCULAR VOLUME 92 fL (79.0-98.0); MONOCYTES # (AUTO) 0.4 K/uL (0.0-1.0); MONOCYTES % (AUTO) 9.3 % (1.7-9.3); PLATELET COUNT (AUTO) 122 K/uL (130-430); RED BLOOD CELL COUNT(AUTO) 3.79 MIL/uL (4.2-6.2); RED CELL DISTRIBUTION WIDTH 14.2 % (9.0-15.0); WHITE BLOOD COUNT (AUTO) 3.8 K/uL (4.8-10.8)
[2020-02-08 14:53] LABS: CALCIUM 8.1 mg/dL (8.4-11.0); CREATININE 4.53 mg/dL (0.55-1.30); POTASSIUM 3.7 mmol/L (3.5-5.1)
[2020-02-08 14:55] LABS: BASOPHILS % (AUTO) 0.2 % (0.0-2.0); NEUTROPHILS # (AUTO) 2.6 K/uL (1.8-7.7); NEUTROPHILS % (AUTO) 66.7 % (40.0-70.0)
[2020-02-08 14:56] LABS: EOSINOPHILS # (AUTO) 0.2 K/uL (0.0-0.4)
[2020-02-08 14:58] LABS: ALBUMIN 3.4 g/dL (3.4-4.8); TOTAL BILIRUBIN 0.3 mg/dL (0.0-1.0)
[2020-02-08] MEDS ORDERED: AZITHROMYCIN 500 MG in NS 250 ML IV ONE (15:00)
[2020-02-08 15:15] LABS: PROTHROMBIN TIME 10.2 SECS (9.5-12.5)
[2020-02-08 15:21] LABS: BILIRUBIN,URINE NEGATIVE (NEGATIVE); BLOOD, URINE NEGATIVE (NEGATIVE); CLARITY/URINE CLEAR (CLEAR); COLOR,URINE YELLOW (YELLOW); GLUCOSE,URINE NEGATIVE (NEGATIVE); KETONES,URINE TRACE (NEGATIVE); LEUKOCYTE ESTERASE ,URINE NEGATIVE (NEGATIVE); NITRITE, URINE NEGATIVE (NEGATIVE); PROTEIN URINE 1+ (NEGATIVE); UROBILINOGEN,URINE 0.2 (0.2-1.0)
[2020-02-08 15:29] LABS: BACTERIA,URINE FEW /HPF (None Seen); MUCUS,URINE None Seen /LPF (None Seen); RBC,URINE NONE SEEN /HPF (0-3); WBC,URINE 0-3 /HPF (0-3)
[2020-02-08 16:14] VITALS: BP_SYST 139
== END 2020-02-08 16:15 | disposition home or self-care (01) ==
LOC: SED 11:37 → EEVIPCON 11:37 → SED 16:15
DX: J18.9 Pneumonia, unspecified organism (principal); I10 Essential (primary) hypertension; E11.9 Type 2 diabetes mellitus without complications; J45.909 Unspecified asthma, uncomplicated; Z79.4 Long term (current) use of insulin; Z79.899 Other long term (current) drug therapy; Z20.828 Contact with and (suspected) exposure to other viral communicable diseases
CPT/HCPCS: 36415; 71045; 80053; 81000; 83605; 84484; 85025; 85610; 85730; 87040; 87086; 93005; 96365; 96375; 99285; C9803; U0003

== ENCOUNTER 2020-02-14 14:36 | Emergency (ER) | payer OTHER, BC ==
[~2020-02-14] VITALS: Ht 180.3 cm; Wt 147.9 kg
[2020-02-14 14:58] VITALS: BP_SYST 134
[2020-02-14 15:38] LABS: RED BLOOD CELL COUNT(AUTO) 3.89 MIL/uL (4.2-6.2); RED CELL DISTRIBUTION WIDTH 14.2 % (9.0-15.0); WHITE BLOOD COUNT (AUTO) 3.7 K/uL (4.8-10.8)
[2020-02-14 16:01] LABS: BASOPHILS % (AUTO) 0.9 % (0.0-2.0); CALCIUM 7.9 mg/dL (8.4-11.0); CREATININE 4.07 mg/dL (0.55-1.30); HEMATOCRIT 35.3 % (36-54); LYMPHOCYTES # (AUTO) 0.8 K/uL (1.0-5.5); LYMPHOCYTES % (AUTO) 22.3 % (20.5-51.5); MEAN CORPUSCULAR HEMOGLOBIN 31 pg (27-31); MEAN CORPUSCULAR HGB CONC 34 % (32-36); MEAN CORPUSCULAR VOLUME 91 fL (79.0-98.0); MONOCYTES # (AUTO) 0.5 K/uL (0.0-1.0); MONOCYTES % (AUTO) 13.8 % (1.7-9.3); NEUTROPHILS # (AUTO) 2.3 K/uL (1.8-7.7); PLATELET COUNT (AUTO) 119 K/uL (130-430)
[2020-02-14 16:07] LABS: TOTAL BILIRUBIN 0.5 mg/dL (0.0-1.0)
[2020-02-14 16:11] LABS: BILIRUBIN,URINE NEGATIVE (NEGATIVE); BLOOD, URINE 1+ (NEGATIVE); COLOR,URINE YELLOW (YELLOW); GLUCOSE,URINE NEGATIVE (NEGATIVE); KETONES,URINE NEGATIVE (NEGATIVE); LEUKOCYTE ESTERASE ,URINE NEGATIVE (NEGATIVE); NITRITE, URINE NEGATIVE (NEGATIVE); PH,URINE 5.5 (5.0-8.0); PROTEIN URINE 2+ (NEGATIVE); UROBILINOGEN,URINE 0.2 (0.2-1.0)
[2020-02-14 16:16] LABS: CLARITY/URINE HAZY (CLEAR)
[2020-02-14 16:22] LABS: RBC,URINE 0-3 /HPF (0-3)
[2020-02-14 16:23] LABS: BACTERIA,URINE MODERATE /HPF (None Seen); COARSE GRANULAR CASTS,URINE 0-10 /LPF (None Seen); MUCUS,URINE 1+ /LPF (None Seen); URINE AMORPHOUS URATE 2+ /HPF (None Seen)
[2020-02-14 16:25] LABS: PROTHROMBIN TIME 10.2 SECS (9.5-12.5)
[2020-02-14] MEDS ORDERED: cefTRIAXone 1 GM IVPB PREMIX 50 ML IV ONE (17:15)
[2020-02-14 18:45] VITALS: BP_SYST 134
== END 2020-02-14 18:45 | disposition home or self-care (01) ==
LOC: SED 14:36
DX: J18.9 Pneumonia, unspecified organism (principal); E78.1 Pure hyperglyceridemia; J45.909 Unspecified asthma, uncomplicated; I12.9 Hypertensive chronic kidney disease with stage 1 through stage 4 chronic kidney disease, or unspecified chronic kidney disease; E11.22 Type 2 diabetes mellitus with diabetic chronic kidney disease; N18.9 Chronic kidney disease, unspecified; M10.9 Gout, unspecified; Z79.4 Long term (current) use of insulin; Z79.899 Other long term (current) drug therapy; Z20.828 Contact with and (suspected) exposure to other viral communicable diseases
CPT/HCPCS: 36415; 71045; 80053; 81000; 83605; 84484; 85025; 85610; 85730; 87040; 87086; 93005; 96365; 99285; C9803; U0003